=== PATIENT | male | born 1960 | race Caucasian/White ===

== ENCOUNTER 2025-06-09 10:33 | Day surgery (SDC) | payer MEDICARE, MEDICAID ==
[~2025-06-09] VITALS: Ht 185.4 cm; Wt 144.2 kg
[~2025-06-09 10:33] MED LIST: AMIO200T76 PO; APIX5TAB3 PO; LORA-268 PO; METO50TA17 PO; MOME45CR3; MULT-1141 PO; PANT40TA54 PO
[2025-06-09 11:04] VITALS: BP 137/94; PULSE 77; RESP 14; TEMP 98.2; O2SAT 100
[2025-06-09] MEDS ORDERED: normal saline 1000ml 1,000 ML IV SCH (11:05)
[2025-06-09] MEDS ORDERED: fentaNYL/PF 50MCG/1 ML 2ML syringe IV ONE (11:05)
[2025-06-09] MEDS ORDERED: MIDAZolam 1mg/ml 10ml vial IV ONE (11:05)
[2025-06-09] MEDS ORDERED: fentaNYL/PF 50MCG/1 ML 2ML syringe ONE (12:07)
[2025-06-09] MEDS ORDERED: midazolam 1 mg/ML 2ml injection ONE ×2 (12:07→12:31)
[2025-06-09] MEDS ORDERED: amiodarone 50MG/ML inj IV ONE (12:07)
[2025-06-09] MEDS ORDERED: atropine 0.1mg/ml 10ml syringe ONE (12:08)
[2025-06-09 12:55] VITALS: BP 136/82; PULSE 64; RESP 12; O2SAT 95
[2025-06-09 13:10] VITALS: BP 113/73; PULSE 60; RESP 13; O2SAT 96
--- NOTE | 2025-06-09 13:11 | ELECTROCARDIOGRAPH REPORT ---
[facility] Test Date: 2025-06-09 Test Time: 13:05:37 Pat Name: MONE DO Department: [facility] Patient ID: [id number] Room: Gender: M Client Relationship Manager: MARCELLE : 1960 Requested By: CHARLOTTE PRADHAN Order Number: [id number] Reading MD: Dr. Biju Willson Measurements Intervals [place] Rate: 62 P: 66 TN: 233 QRS: 2 QRSD: 92 T: 39 QT: 440 QTc: 447 Interpretive Statements Sinus rhythm Prolonged TN interval Abnormal R-wave progression, delayed precordial transition Low voltage, precordial leads Electronically Signed On 06-10-2025 13:24:[address] Biju Willson Please click the below link to view image of tracing.
[2025-06-09 13:25] VITALS: BP 107/75; PULSE 63; RESP 14; O2SAT 97
[2025-06-09 13:40] VITALS: BP 107/75; PULSE 63; RESP 14; O2SAT 97
--- NOTE | 2025-06-09 16:19 | PROCEDURE NOTE CC ---
Procedure Note Providers to CC CC: SUNNY PRADHAN MD ~ Description Planned Procedure Cardioversion Indications Symptomatic Atrial Fibrillation Post Operative Dx: Same Type of Anesthesia Moderate Sedation. Description It was confirmed that patient has been taking oral anticoagulation without interruption for at least 4 weeks. The appropriate time-out procedure was performed including proper identification of the patient, physician, procedure, documentation, and there were no safety issues identified. The patient participated actively in this. After sedation was achieved, the patient was placed in the supine position and hands free patches were placed on their chest in the AP-lateral position. 1 synchronized cardioversion was provided at 200 Joules with conversion to normal sinus rhythm. This was confirmed on EKG. Complication: None The patient tolerated the procedure well without complications. CHARLOTTE PRADHAN MD Jun 09, 2025 16:19
== END 2025-06-09 13:35 | disposition home or self-care (01) ==
LOC: EDSEX 10:33 → SSTAY O 10:33
PROVIDERS: ATTEND Student in an Organized Health Care Education/Training Program
DX: I48.91 Unspecified atrial fibrillation (principal); R94.31 Abnormal electrocardiogram [ECG] [EKG]; I11.0 Hypertensive heart disease with heart failure; I50.9 Heart failure, unspecified; E78.00 Pure hypercholesterolemia, unspecified; G47.33 Obstructive sleep apnea (adult) (pediatric); Z79.01 Long term (current) use of anticoagulants; Z79.899 Other long term (current) drug therapy; Z88.0 Allergy status to penicillin; Z88.8 Allergy status to other drugs, medicaments and biological substances
CPT/HCPCS: 92960; 93005; J2250; J3010; J7030; Z7610; 99152; J0282; J0461